=== PATIENT | female | born 2000 | race Caucasian/White ===

== ENCOUNTER → 2024-09-29 12:43 | Outpatient (REF) | payer BC, SELFPAY | LOC: HWRAD 12:43 | PROVIDERS: ATTENDING PHYSICIAN Obstetrics & Gynecology | DX: N92.6 Irregular menstruation, unspecified (principal) | CPT/HCPCS: 76830; 76856 ==

== ENCOUNTER → 2024-10-20 06:34 | Outpatient (REF) | payer BC, SELFPAY | LOC: MRI 06:34 | PROVIDERS: ATTENDING PHYSICIAN Student in an Organized Health Care Education/Training Program | DX: M53.3 Sacrococcygeal disorders, not elsewhere classified (principal); M25.552 Pain in left hip; M54.50 Low back pain, unspecified | CPT/HCPCS: 72148 ==

== ENCOUNTER → 2025-06-09 12:48 | Outpatient (REF) | payer BC, SELFPAY | LOC: RAD 12:48 | PROVIDERS: ATTENDING PHYSICIAN Physical Medicine & Rehabilitation Sports Medicine | DX: M25.552 Pain in left hip (principal); S73.192A Other sprain of left hip, initial encounter | CPT/HCPCS: 27093; 73525; 73722 ==